=== PATIENT | male | born 1965 | race Caucasian/White ===

== ENCOUNTER 2018-03-12 07:00 | Outpatient (RCR) | payer BC, SELFPAY ==
--- NOTE | 2018-01-26 10:59 | HP.PTEVAL_ITS ---
Patient's Visit Information ANTHONY FITZGERALD is a 52 year old M referred to Physical Therapy by FAUSTO Petersen with a diagnosis of LEFT TROCHANTERIC BURSITIS,OA LEFT. Date of Evaluation: 01/26/18 Physical Therapist: Nico Cole PT, - Visit Plan Frequency: 2x /Week Duration: 4 Weeks Plan: modalities for pain releive ,grade strengthening hip,flexablity,manualt therapy. Patient very tender insertion of I-T BAND - Subjective Subjective: This 52 y/o male presents to physical therapy with with trochanteric bursitis left hip,unilteral primary osteoarthritis. Patient has lateral hip pain greater trochanter 4 months . Patient had no mechanism of injury just incidous onset.Patient tried cortizone lateral hip didnt help. Seen PAC at [facility] ,did x-rays showed mild OA predisone . Patient symptoms with extended walking,stairs,lunges,end of day,incline and hill. Symptoms affect sleeping described as ache. Symptoms better with rest. Denies parathesia/tingling. SOCIAL: . 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 HOBBIES: hiking , skiing - Pain Left Hip Pain Intensity (Out of 10): 4 Pain Intensity Range: 10 Comment: lateral hip - Objective POSTURE: WFL. GAIT: normal darryn reciprocal. PALPATION: tender IT band proximal to greater tronhanter. NEURO: denies parathesia/tingling,. FLEXABLITY : HAMS /HIP ER/IR ,I-TBAND. MMT: quad/hams 4/5,hip flexion 4/5 ,hip abd/ER/IR 4 -/5 PAIN - Special Tests L Hip Scour: Negative L Hip Trendelenberg - Glut Medius: Negative L Hip Brigido - IT Band: Negative - Goals Goal 1:: Independant with HEP Goal Time Frame: 4-6 Weeks Goal 2:: Patient to decrease lateral hip I-TBAND by 50% or greater to improve gait and function Goal Time Frame: 4-6 Weeks Goal 3:: Patient increase strength of hip ER/IR/ABD 4/5 to inmprove gait function Goal Time Frame: 4-6 Weeks Goal 4:: Patient to improve LFES score by 8-10 points to improve function and QOL Goal Time Frame: 4-6 Weeks Goal 5:: Patient chance to perform job demnads,ADL'S,housework hobbies without limitation with less hip. pain. Goal Time Frame: 4-6 Weeks Goal 6:: Patient be able to sleep 0n left side with less pain with palaption Goal Time Frame: 4-6 Weeks - Rehabilitation Potential Physical Therapy Diagnosis: This patient has proximal I- T band tendonitis with pain with palpation ,weakness impairs walking ,stairs ,function and hobbies with hiking -hills thus benifit from skilled PT Rehabilitation Potential: Good - Anticipated Interventions Patient/Client Instruction: Educate patient on: Condition, Plan of Care For the Purpose of:: To decrease pain, To increase ROM, To improve nutrient delivery to tissue, To increase oxygenation perfusion, To improve muscle performance and motor function, To increase tolerance to activity/condition/ position, To improve ability of physical actions for home/community/work/leisure , To improve gait and locomotor functions, To improve health of tissue, To decrease soft tissue restriction, To increase flexibility/ROM, To reduce risk of recurrence, To improve ability to perform tasks related to life management Therapeutic Exercise to Include: Strength training, Flexibilty training, Active ROM Comment: HIP For the Purpose of:: To decrease pain, To decrease swelling/inflammation, To increase ROM, To improve muscle performance and motor function, To increase tolerance to activity/condition/position, To improve ability of physical actions for home/community/work/leisure, To improve health of tissue, To decrease soft tissue restriction, To increase flexibility/ROM, To improve safety , To improve ability to perform tasks related to life management Manual Therapy Techniques to Include: Soft tissue mobilization Comment: IT-BAND For the Purpose of:: To decrease pain, To increase ROM, To improve nutrient delivery to tissue, To increase oxygenation perfusion, To improve health of tissue, To decrease soft tissue restriction IF ES: Yes Other electric stimulation: Yes Cryotherapy (ice pack, ice massage): Yes Thermo therapy (hot pack): Yes Ultrasound (thermal/non thermal): Yes For the Purpose of:: To decrease pain, To decrease swelling/inflammation, To increase ROM, To improve nutrient delivery to tissue, To increase oxygenation perfusion, To improve health of tissue, To decrease soft tissue restriction Thank you for the opportunity to evaluate your patient. For Medicare and Medicare HMO plans, please review the plan of care and approve it. It will need to be FAXED BACK to us at [phone] for Medicare purposes. Please let me know if there are questions or concerns regarding this plan of care. Physician Signature: Date:
--- NOTE | 2018-04-19 18:26 | HP.PT.NRP ---
HP - Discharge Summary (1) - Patient Information ANTHONY FITZGERALD was seen in my office for initial evaluation on 01/26/18. The following Plan of Care was established for this patient: Initial Frequency: 2x /Week Initial Duration: 4 Weeks - Anticipated Interventions Patient/Client Instruction: Educate patient on: Condition, Plan of Care For the Purpose of:: To decrease pain, To increase ROM, To improve nutrient delivery to tissue, To increase oxygenation perfusion, To improve muscle performance and motor function, To increase tolerance to activity/condition/position, To improve ability of physical actions for home/community/work/leisure, To improve gait and locomotor functions, To improve health of tissue, To decrease soft tissue restriction, To increase flexibility/ROM, To reduce risk of recurrence, To improve ability to perform tasks related to life management Therapeutic Exercise to Include: Strength training, Flexibilty training, Active ROM For the Purpose of:: To decrease pain, To decrease swelling/inflammation, To increase ROM, To improve muscle performance and motor function, To increase tolerance to activity/condition/position, To improve ability of physical actions for home/community/work/leisure, To improve health of tissue, To decrease soft tissue restriction, To increase flexibility/ROM, To improve safety, To improve ability to perform tasks related to life management Manual Therapy Techniques to Include: Soft tissue mobilization Comment: IT-BAND For the Purpose of:: To decrease pain, To increase ROM, To improve nutrient delivery to tissue, To increase oxygenation perfusion, To improve health of tissue, To decrease soft tissue restriction IF ES: Yes Other electric stimulation: Yes Cryotherapy (ice pack, ice massage): Yes Thermo therapy (hot pack): Yes Ultrasound (thermal/non thermal): Yes For the Purpose of:: To decrease pain, To decrease swelling/inflammation, To increase ROM, To improve nutrient delivery to tissue, To increase oxygenation perfusion, To improve health of tissue, To decrease soft tissue restriction This patient was last seen in our office 03/16/18. Pertinent comments regarding their Physical therapy will appear below: This patient was seen for left tronchanteric bursits with PT treatment focusing on modlaties,manual therapy . Patient was progressinfg with decreasing pain for function thus is d/c. At this point I will be discontinuing this patient from physical therapy. I would be happy to see this patient again in the future if found appropriate by the physician. Thank you! Nico Cole, PT,
== END 2018-03-12 19:00 | disposition home or self-care (01) ==
LOC: PT 07:00
PROVIDERS: Family Provider Family Medicine; PCP Family Medicine; Visit Provider Physician Assistant Surgical
DX: M70.62 Trochanteric bursitis, left hip (principal); M16.12 Unilateral primary osteoarthritis, left hip
CPT/HCPCS: 97014; 97035; 97140; 97161; G0283

== ENCOUNTER 2018-10-26 08:00 | Outpatient (RCR) | payer BC, SELFPAY ==
--- NOTE | 2018-09-17 08:08 | HP.PTEVAL_ITS ---
Patient's Visit Information ANTHONY FITZGERALD is a 53 year old M referred to Physical Therapy by Chepe Edwards DPM with a diagnosis of R plantarfascitis. Date of Evaluation: 09/17/18 Physical Therapist: King Grissom, PT, ATC - Visit Plan Frequency: 2x /Week Duration: 4-6 Weeks Plan: R foot stretching, DTR, Graston tools, US, dry needling, and HEP. - Subjective Findings: Pt reports he has had R foot pain for a chronic period of time. Pt reports his pain has progressed over the past 4 mos. Pt notes he has been given stretches to perform, wears a night splint, and has orthotics in his shoes which have not given him the results he had hoped for. Pt reports his pain gets worse as the day goes on. 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 Pt has had xrays taken where he reports the doctor didnt see anything to be concerned about. Pt reports if he doesnt get relief soon, his doctor is going to order an MRI. No sleep difficulty secondary to pain. Pt reports his pain is worse after he sits for a long period of time and attempts to stand. Pt reports he is not limited with most daily acitivities secondary to pain. 2/10 pain at rest, 8/10 at the end of the day. - Pain R foot Pain Intensity (Out of 10): 2 Pain Intensity Range: 8 - Objective Neuro: B LE sensation is WNL to light touch. B achilles reflex= 2/3. ROM: L ankle DF= 10, PF= 60, INV= 40, ever= 30; R ankle DF= 8, PF= 60, Inv= 40, ever= 20. MMT: B LE's 5/5 throughout. Palpation: Pt is very tender along the origin of the plantarfascia. No obvious deformity noted. Observation: Pt stands with a pronated foot. During ambulation, pt pronates early during stance phase. - Goals Goal 1:: Decrease R foot pain x 50% to aid with tolerance for standing acivity Goal Time Frame: 4-6 Weeks Goal 2:: Increase R foot dorsiflexion ROM x 5-10 degrees to aid with decreasing R foot pain Goal Time Frame: 4-6 Weeks Goal 3:: I with HEP Goal Time Frame: 4-6 Weeks - Rehabilitation Potential Physical Therapy Diagnosis: R foot pain, limited ROM, and intol for prolonged ambulation secondary to R plantarfacitis Rehabilitation Potential: Good - Anticipated Interventions Patient/Client Instruction: Educate patient on: Condition, Plan of Care For the Purpose of:: To improve self management Therapeutic Exercise to Include: Flexibilty training, Passive ROM, Active ROM For the Purpose of:: To decrease pain, To increase ROM, To increase tolerance to activity/condition/position Manual Therapy Techniques to Include: Soft tissue mobilization For the Purpose of:: To decrease pain, To increase ROM Ultrasound (thermal/non thermal): Yes For the Purpose of:: To decrease pain Thank you for the opportunity to evaluate your patient. For Medicare and Medicare HMO plans, please review the plan of care and approve it. It will need to be FAXED BACK to us at [phone] for Medicare purposes. For Medicare only, by signing this I certify the plan of care. Please let me know if there are questions or concerns regarding this plan of car e. Physician Signature: Date:
--- NOTE | 2018-10-26 08:35 | HP.PTDCSUM ---
HP - PT D/C Summary It has been my pleasure to treat ANTHONY FITZGERALD under orders from Chepe Edwards DPM, for the diagnosis of R plantarfascitis for a total of 7 visit(s). Discharge Date: Please see the following information for a summary of their discharge status. - Subjective Subjective: Pt feels ready for DC. Still gets a lot of pain on occasion - Pain R foot Pain Intensity (Out of 10): 2 - Overall Improvement % Improvement: 75 - Objective Objective/Function: R foot pain is 2/10. R ankle DF ROM= 20 degrees. Pt is now I with HEP. Rx goals achieved - Goals Goal 1:: Decrease R foot pain x 50% to aid with tolerance for standing acivity Goal Progress: Goal Met Goal 2:: Increase R foot dorsiflexion ROM x 5-10 degrees to aid with decreasing R foot pain Goal Progress: Goal Met Goal 3:: I with HEP Goal Progress: Goal Met - Plan Plan: Discharge - D/C Information If there are questions or concerns regarding this patient's physical therapy, please feel free to call me at [phone]. Thank you for the referral of this patient. Sincerely, King Grissom, PT, ATC
== END 2018-10-26 10:15 | disposition home or self-care (01) ==
LOC: PT 08:00
PROVIDERS: Family Provider Family Medicine; PCP Family Medicine; Referring Provider Podiatrist; Visit Provider Podiatrist
DX: M72.2 Plantar fascial fibromatosis (principal)
CPT/HCPCS: 97110; 97140; 97161; 97530

== ENCOUNTER → 2019-04-18 12:00 | Outpatient (CLI) | payer BC, SELFPAY ==
--- NOTE | 2019-04-18 12:04 | RAD_ITS ---
STUDY: X-RAY - RIGHT WRIST REASON FOR EXAM: Male, 53 years old. Pain following injury. TECHNIQUE: 3 view(s) of the wrist were obtained. COMPARISON: None. FINDINGS: Normal visualized distal radius and ulna. Normal radiocarpal articulation. Normal distal radioulnar articulation. Normal carpal bones. Normal carpal articulations. Normal carpometacarpal articulation of the thumb. Normal second through fifth carpometacarpal articulations. Normal visualized metacarpal bones. Soft tissue swelling. RAD/Wrist min 3 Views IMPRESSION: Soft tissue swelling. Electronically Signed: Richard Shane, at 12:35 EST , Service support ,
== END ==
PROVIDERS: Family Provider Family Medicine; PCP Family Medicine; Referring Provider Physician Assistant; Visit Provider Physician Assistant
DX: S69.91XA Unspecified injury of right wrist, hand and finger(s), initial encounter (principal)
CPT/HCPCS: 73110

== ENCOUNTER → 2020-12-26 07:10 | Outpatient (CLI) | payer BC, SELFPAY ==
[2020-12-26 08:09] LABS: Absolute Lymphocyte Count 1.77 X10^3/uL (0.83-4.51); Absolute Neutrophil Count 3.6 X10^3/uL (2.0-7.7); Basophil# 0.05 X10^3/uL; Basophil% 0.8 % (0-1); Eosinophil# 0.19 X10^3/uL; Eosinophils% 3.1 % (0-5); Hematocrit 44.5 % (40-54); Hemoglobin 15.3 g/dL (13.0-16.5); Lymphocyte # 1.77 X10^3/ul (0.83-4.51); Lymphocyte % 28.8 % (19-41); Mean Corp Hgb Conc 34.4 g/dL (32-36); Mean Corpuscular Hgb 28.3 pg (27.0-32.0); Mean Corpuscular Volume 82.4 fL (80-94); Mean Platelet Vol. 9.5 fl (6.2-12.0); Monocyte% 8.1 % (0-10); NRBC Flagged by Analyzer 0 % (0-5); Neutrophil # 3.61 X10^3/uL (2.7-7.7); Neutrophil % 58.7 % (47-70); Platelet Count 212 K/mm3 (150-450); RBC Distribution Width CV 12.3 % (11.6-14.6); RBC Distribution Width SD 36.8 fl (35.1-43.9); White Blood Count 6.2 K/mm3 (4.4-11.0)
[2020-12-26 09:02] LABS: ALB/GLOB Ratio 1.1 RATIO (0.9-2.4); AST(SGOT) 35 U/L (15-37); Alanine Aminotransfer ALT/SGPT 43 U/L (16-61); Albumin, Serum 3.8 g/dL (3.2-5.0); Alkaline Phosphatase 94 U/L (45-117); Anion Gap 4 (5-15); BUN 27 mg/dL (7-18); Calcium,Total 8.9 mg/dL (8.5-10.1); Chloride 104 mmol/L (98-107); Cholesterol 199 mg/dL (200); Creatinine, Serum 1.23 mg/dL (0.70-1.30); EST Glomerular Filtration Rate 65 mL/min (>60); Est Glom Filt Rate - Afr Amer 79 mL/min (>60); Globulin 3.5 g/dL (2.2-4.2); Glucose 115 mg/dL (74-106); High Density Lipoprotein 23 mg/dL; PSA,Total - Annual Screen 0.83 ng/mL (0.00-4.00); Potassium 4.4 mmol/L (3.5-5.1); Protein, Total 7.3 g/dL (6.4-8.2); Sodium Level 138 mmol/L (136-145); Triglycerides 838 mg/dL
== END ==
PROVIDERS: PCP Family Medicine; Referring Provider Family Medicine; Visit Provider Family Medicine
DX: Z00.00 Encounter for general adult medical examination without abnormal findings (principal); Z12.5 Encounter for screening for malignant neoplasm of prostate
CPT/HCPCS: 36415; 80053; 80061; 84153; 85025; G0103

== ENCOUNTER → 2021-02-12 06:20 | Outpatient (CLI) | payer BC, SELFPAY ==
[2021-02-12 08:05] LABS: Cholesterol 166 mg/dL (200); High Density Lipoprotein 22 mg/dL; Triglycerides 493 mg/dL
[2021-02-12 08:43] LABS: Hemoglobin A1c 5.5 % (3.8-5.6)
== END ==
PROVIDERS: PCP Family Medicine; Referring Provider Family Medicine; Visit Provider Family Medicine
DX: E78.1 Pure hyperglyceridemia (principal); R73.01 Impaired fasting glucose
CPT/HCPCS: 36415; 80061; 83036